=== PATIENT | female | born 1995 | race African-American/Black ===

== ENCOUNTER 2016-11-18 15:33 | Emergency (ER) | payer OTHER ==
[2016-11-18 15:36] VITALS: BP 139/80; BMI 31.1
== END 2016-11-18 18:46 | disposition left against medical advice (07) ==
LOC: ER 15:40
DX: R07.89 Other chest pain (principal)
CPT/HCPCS: 99281

== ENCOUNTER 2017-02-13 20:21 | Emergency (ER) | payer SELFPAY ==
[2017-02-13 20:29] VITALS: BP 125/55; BMI 31.1
--- NOTE | 2017-02-13 20:43 | DR.GENAD ---
HPI - PCP Primary Care Physician: nfd - Complaint/Symptoms Chief Complaint Doctors Comments: complaint of left lower toothache x 4 days Chief Complaint:: toothache - Nurses notes reviewed Nurses Notes Review: Yes - Source History Provided: Patient - Mode of Arrival Mode of Arrival: Ambulatory - Timing Onset of Chief Complaint: 02/09/17 Came on: Gradually - Duration Duration: Constant How lon Duration: Days - Location Location: left lower molar - Severity Severity: Moderate - Modifying Factors Worsens:: chewing - Associated Signs and Symptoms Associated Signs and Symptoms: pain PMH - PMH Past Medical History: No Past Surgical History: Yes Surgical History: Cholecystectomy, Tonsillectomy - Family History History of Family Medical Conditions: Yes Family Medical History: Diabetes Mellitus - Social History Does patient currently use any type of tobacco product: No Have you used tobacco products in the last 12 months: No Type of Tobacco Use: None Does any household member use tobacco: Yes Do you use any recreational Drugs:: No Lives With: Family Lives Where: Home - infectious screening In the last 2 months have you had wt loss of >10#?: NO Have you had fever, night sweats or hemotysis?: No Have you traveled outside the country in the last 6 months?: No Isolation: Standard ROS - Review of Systems Constitutional: No Symptoms Reported Eyes: No Symptoms Reported ENTM: Mouth Pain (tooth pain) Respiratoy: No Symptoms Reported Cardiovascular: No Symptoms Reported Gastrointestinal/Abdominal: No Symptoms Reported Genitourinary: No Symptoms Reported Neurological: No Symptoms Reported Musculoskeletal: No Symptoms Reported Integumentary: No Symptoms Reported Hematologic/Lymphatic: No Symptoms Reported Psychiatric: No Symptoms Reported PE - Vital Signs Vitals: Temperature 98.5 F Pulse Rate 69 Respiratory Rate 18 Blood Pressure [Right Arm] 103/55 Blood Pressure 125/55 O2 Sat by Pulse Oximetry 99 - General Limitations: No Limitations General Appearance: Alert, In No Apparent Distress - Head Head Exam: Normal Inspection - Eyes Eye exam: EOMI. negative: Scleral Icterus, Conjunctival Injection - ENT ENT Exam: negative: Normal Oropharynx (poor dentition, left lower molar gum swollen) External Ear Exam: Normal External Inspection Mouth Exam: negative: Drooling, Trismus, Lip Swelling, Tongue Elevation, Tongue Swelling Throat Exam: Normal Inspection - Neck Neck Exam: Normal Inspection, Full ROM, Trachea Midline - Chest Chest Inspection: Normal Inspection - Respiratory Respiratory Exam: negative: Accessory Muscle Use, Respiratory Distress - Cardiovascular Cardiovascular Exam: Regular Rate - Extremities Extremities Exam: Normal Inspection, Full ROM - Back Back Exam: Normal Inspection - Neurologic Neurological Exam: Alert, Oriented X3, CN II-XII Intact - Psychiatric Psychiatric Exam: Normal Mood - Skin Skin Exam: Intact, Normal Color - Diagnosis Discharge Problem: Toothache - Discharge Plan Condition: Stable Prescriptions: Amoxicillin 500 mg PO TID #30 cap Tramadol HCl [ULTRAM 50 MG *] 50 mg PO Q8H PRN #15 tab PRN Reason: Pain - Follow ups/Referrals Follow ups/Referrals: NFD,None [Primary Care Provider] - 3 days - Instructions
[2017-02-13] MEDS ORDERED: ULTRAM PO ONE (20:48)
[2017-02-13] MEDS ORDERED: AMOXIL CAP 500 MG PO ONE ×2 (20:48→20:55)
[2017-02-13] MEDS ORDERED: ULTRAM ONE (20:55)
== END 2017-02-13 21:09 | disposition home or self-care (01) ==
LOC: ER 20:33
DX: K08.89 Other specified disorders of teeth and supporting structures (principal)
CPT/HCPCS: 99282

== ENCOUNTER 2017-05-08 19:06 | Emergency (ER) | payer SELFPAY ==
[2017-05-08 19:13] VITALS: BMI 31.1
--- NOTE | 2017-05-08 20:04 | DR.GENAD ---
HPI - PCP Primary Care Physician: GURDEEP - Complaint/Symptoms Chief Complaint Doctors Comments: HEADACHE, POLYURIA AND POLYDYPSIA TIME 6 DAYS. HEADACHE WORSE TODAY. ASSOCIATED WITH NAUSEA. PATIENT FEEL SHE IS DEHYDRATED. Chief Complaint:: HEADACHE DEHYDRATION NUMBNESS IN HANDS, POLYURIA, POLYDYPSIA, POLYPHAGIA - Nurses notes reviewed Nurses Notes Review: Yes - Source History Provided: Patient - Mode of Arrival Mode of Arrival: Ambulatory - Timing Onset of Chief Complaint: 05/02/17 Came on: Suddenly - Duration Duration: Constant Duration: Days - Severity Severity: Moderate PMH - PMH Past Medical History: No Past Surgical History: Yes Surgical History: Cholecystectomy, Tonsillectomy - Family History History of Family Medical Conditions: Yes Family Medical History: Diabetes Mellitus, Hypertension - Social History Does patient currently use any type of tobacco product: No Have you used tobacco products in the last 12 months: No Type of Tobacco Use: None Does any household member use tobacco: No Alcohol Use: None Do you use any recreational Drugs:: No Lives With: Family Lives Where: Home - infectious screening In the last 2 months have you had wt loss of >10#?: NO Have you had fever, night sweats or hemotysis?: No Have you traveled outside the country in the last 6 months?: No Isolation: Standard ROS - Review of Systems Constitutional: Weakness, Fatigue Eyes: No Symptoms Reported. negative: Eye Pain, Discharge ENTM: No Symptoms Reported. negative: Ear Pain, Nose Discharge, Nose Congestion , Throat Pain Respiratoy: No Symptoms Reported, Productive Cough, Non-Productive Cough, Stridor. negative: Short of Breath, Wheezing, Hemoptysis Cardiovascular: No Symptoms Reported Gastrointestinal/Abdominal: Abdominal Pain, Nausea, Vomiting Genitourinary: No Symptoms Reported. negative: Dysuria, Frequency, Hematuria Neurological: Headache, Numbness, Weakness, Dizziness Musculoskeletal: No Symptoms Reported Integumentary: No Symptoms Reported Hematologic/Lymphatic: No Symptoms Reported Endocrine: No Symptoms Reported All Other Systems: Reviewed and Negative PE - Vital Signs Vitals: Temperature 98.0 F Pulse Rate [Left Brachial] 63 Pulse Rate 61 Respiratory Rate 20 Blood Pressure [Right Arm] 133/74 Blood Pressure 124/66 O2 Sat by Pulse Oximetry 99 - General Limitations: No Limitations General Appearance: Alert - Head Head Exam: Normal Inspection - Eyes Eye exam: Normal Appearance - ENT ENT Exam: Normal External Ear Exam TM/Canal Exam: Bilateral Normal Nose Exam: Normal Nose Exam Mouth Exam: Normal Inspection Throat Exam: Normal Inspection - Neck Neck Exam: Normal Inspection - Chest Chest Inspection: Symmetric Chest Wall Rise - Respiratory Respiratory Exam: Normal Lung Sounds Bilat Respiratory Exam: Bilateral Clear to Auscultation - Cardiovascular Cardiovascular Exam: Regular Rate, Normal Rhythm, Normal Heart Sounds - Abdominal Exam Abdominal Exam: Normal Bowel Sounds, Soft. negative: Tenderness - Extremities Extremities Exam: Normal Inspection - Back Back Exam: Normal Inspection - Neurologic Neurological Exam: Alert, Oriented X3, CN II-XII Intact. negative: Motor Sensory Deficit - Psychiatric Psychiatric Exam: Normal Affect, Normal Mood - Skin Skin Exam: Normal Color MDM - Differential Diagnosis Differential Diagnosis: HEADACHE, VOMITING, POLYURIA/POLYDYPSIA Course - Treatment Treatment: SEE ORDERS. - Education/Counseling Education/Counseling: Patient, Education Educated On: Treatment, Diagnosis, Needs for Follow Up ROR - Labs Reviewed Laboratory Results Reviewed?: Yes Result Diagrams: 05/08/17 20:59 05/08/17 20:59 Laboratory: WBC 8.6 X10^3/uL (3.6-10.0) 05/08/17 20:59 RBC 4.48 X10^6/uL (3.5-5.4) 05/08/17 20:59 Hgb 12.7 g/dL (12.0-16.0) 05/08/17 20:59 Hct 36.9 % (36.0-47.0) 05/08/17 20:59 MCV 82.4 fL (80.0-100.0) 05/08/17 20:59 MCH 28.3 pg (27.0-34.0) 05/08/17 20:59 MCHC 34.3 g/dL (33.0-35.0) 05/08/17 20:59 RDW 12.9 % (11.6-16.5) 05/08/17 20:59 Plt Count 169 X10^3/uL (150.0-450.0) 05/08/17 20:59 Plt Count Comment Adequate (ADEQUATE) 05/08/17 20:59 MPV 12.5 fL (7.4-11.0) H 05/08/17 20:59 Neut % 52.6 % (42.0-75.0) 05/08/17 20:59 Lymph % 37.3 % (21.0-51.0) 05/08/17 20:59 [place] % 5.9 % (0.0-13.0) 05/08/17 20:59 Eos % 3.2 % (0.9-2.9) H 05/08/17 20:59 Baso % 1.0 % (0.2-1.0) 05/08/17 20:59 Neut # 4.5 x10^3/uL (2.2-4.8) 05/08/17 20:59 Lymph # 3.2 X10^3/uL (1.3-2.9) H 05/08/17 20:59 [place] # 0.5 x10^3/uL (0.3-0.8) 05/08/17 20:59 Eos # 0.3 x10^3/uL (0.0-0.2) H 05/08/17 20:59 Baso # 0.1 X10^3/uL (0.0-0.1) 05/08/17 20:59 Absolute Nucleated RBC 0.1 /100WBC 05/08/17 20:59 Plt Morphology Comment Normal (NORMAL) 05/08/17 20:59 RBC Morphology Abnormal (NORMAL) A 05/08/17 20:59 Hypochromasia Slight A 05/08/17 20:59 Anisocytosis Slight A 05/08/17 20:59 Sodium 141 mmol/L (136-145) 05/08/17 20:59 Corrected Sodium TNP 05/08/17 20:59 Potassium 3.6 mmol/L (3.5-5.1) 05/08/17 20:59 Chloride 103 mmol/L (98-107) 05/08/17 20:59 Carbon Dioxide 28.3 mmol/L (21-32) 05/08/17 20:59 BUN 7 mg/dL (7-18) 05/08/17 20:59 Creatinine 0.75 mg/dL (0.55-1.02) 05/08/17 20:59 Est GFR (MDRD) Af Amer > 60 (>60) 05/08/17 20:59 Est GFR (MDRD) Non-Af > 60 (>60) 05/08/17 20:59 Glucose 76 mg/dL (65-99) 05/08/17 20:59 POC Glucose (mg/dL) 95 mg/dL (65-99) 05/08/17 20:12 Calcium 9.5 mg/dL (8.5-10.1) 05/08/17 20:59 Corrected Calcium TNP 05/08/17 20:59 Total Bilirubin 0.60 mg/dL (0.2-1.0) 05/08/17 20:59 AST 26 Units/L (15-37) 05/08/17 20:59 ALT 30 Units/L (12-78) 05/08/17 20:59 Alkaline Phosphatase 134 Units/L (46-116) H 05/08/17 20:59 Total Protein 8.1 g/dL (6.4-8.2) 05/08/17 20:59 Albumin 4.1 g/dL (3.4-5.0) 05/08/17 20:59 Globulin 4.0 g/dL (2.5-4.5) 05/08/17 20:59 Albumin/Globulin Ratio 1.0 Ratio (1.1-2.1) L 05/08/17 20:59 - XRAY XRAY Interpreted by: Radiologist XRAY Findings: REPORT DISCUSS WITH PATIENT. - Diagnosis Discharge Problem: Headache Qualifiers: Headache type: unspecified Headache chronicity pattern: acute headache Intractability: intractable Qualified Code(s): R51 - Headache Nausea & vomiting Qualifiers: Vomiting type: bilious vomiting Qualified Code(s): R11.14 - Bilious vomiting - Discharge Plan Disposition: 01 HOME, SELF-CARE Condition: Stable Prescriptions: Ibuprofen [MOTRIN TAB 600 MG *] 600 mg PO TID PRN #20 tab PRN Reason: Pain/Inflammation Ranitidine HCl [ZANTAC TAB 150 MG *] 150 mg PO BID #20 tab - Follow ups/Referrals Follow ups/Referrals: MEENA MACKENZIE [Primary Care Provider] - 1 day - Instructions Instructions: Migraine Headache, [id number] Additional Instructions: RETURN TO ED IF WORSE.
--- NOTE | 2017-05-08 20:34 | CT ---
CT head without contrast Indication: Headache Technique: Helical CT images of the brain were obtained without IV contrast. Reformatted images in th e coronal and sagittal planes were also generated for review. Comparison: MRI brain 01/03/2016, CT head with and without contrast 12/29/2015 Findings: Previously seen left frontal lobe DVA is not well appreciated on this noncontrast CT examin ation. The remaining brain is unremarkable. No intracranial hemorrhage, visible acute infarct, focal or generalized edema, hydrocephalus, extra-axial collection or mass is identified. The visualized par anasal sinuses and mastoid air cells are clear. No acute osseous or soft tissue abnormality is seen. Impression: No acute intracranial abnormality. Previously identified left frontal lobe DVA is not well appreciated on today's noncontrast CT examina tion. Reported By:
[2017-05-08 21:19] LABS: ALANINE AMINOTRANSFERASE 30 Units/L (12-78); ALBUMIN 4.1 g/dL (3.4-5.0); ALKALINE PHOSPHATASE 134 Units/L (46-116); ASPARTATE AMINO TRANSFERASE 26 Units/L (15-37); BASOPHILS # (AUTO) 0.1 X10^3/uL (0.0-0.1); BLOOD UREA NITROGEN 7 mg/dL (7-18); CALCIUM 9.5 mg/dL (8.5-10.1); CARBON DIOXIDE 28.3 mmol/L (21-32); CHLORIDE 103 mmol/L (98-107); CREATININE 0.75 mg/dL (0.55-1.02); EOSINOPHILS # (AUTO) 0.3 x10^3/uL (0.0-0.2); EOSINOPHILS % (AUTO) 3.2 % (0.9-2.9); HEMATOCRIT 36.9 % (36.0-47.0); HEMOGLOBIN 12.7 g/dL (12.0-16.0); LYMPHOCYTES # (AUTO) 3.2 X10^3/uL (1.3-2.9); LYMPHOCYTES % (AUTO) 37.3 % (21.0-51.0); MEAN CORPUSCULAR HEMOGLOBIN 28.3 pg (27.0-34.0); MEAN CORPUSCULAR HGB CONC 34.3 g/dL (33.0-35.0); MEAN CORPUSCULAR VOLUME 82.4 fL (80.0-100.0); MEAN PLATELET VOLUME 12.5 fL (7.4-11.0); MONOCYTES # (AUTO) 0.5 x10^3/uL (0.3-0.8); MONOCYTES % (AUTO) 5.9 % (0.0-13.0); NEUTROPHILS # (AUTO) 4.5 x10^3/uL (2.2-4.8); NEUTROPHILS % (AUTO) 52.6 % (42.0-75.0); PLATELET COUNT 169 X10^3/uL (150.0-450.0); RED BLOOD COUNT 4.48 X10^6/uL (3.5-5.4); RED CELL DISTRIBUTION WIDTH 12.9 % (11.6-16.5); SODIUM 141 mmol/L (136-145); TOTAL PROTEIN 8.1 g/dL (6.4-8.2); WHITE BLOOD COUNT 8.6 X10^3/uL (3.6-10.0); eGFR BLACK RACES > 60 (>60); eGFR NON BLACK RACES > 60 (>60)
[2017-05-08] MEDS ORDERED: TORADOL TAB PO ONE ×2 (21:31→21:35)
[2017-05-08] MEDS ORDERED: ZANTAC PO ONE ×2 (21:33→21:35)
[2017-05-08 21:34] LABS: PLATELET MORPHOLOGY COMMENT NORMAL (NORMAL)
[2017-05-08 21:35] LABS: ANISOCYTOSIS SLIGHT; HYPOCHROMASIA SLIGHT
[2017-05-08 21:56] VITALS: BP 133/74
== END 2017-05-08 21:55 | disposition home or self-care (01) ==
LOC: ER 19:18
DX: R51 Headache (principal); R11.14 Bilious vomiting
CPT/HCPCS: 36415; 70450; 80053; 85025; 99282; 99283

== ENCOUNTER 2017-07-02 19:39 | Emergency (ER) | payer SELFPAY ==
[2017-07-02 19:50] VITALS: BMI 30.5
[2017-07-02] MEDS ORDERED: IMITREX INJ SC ONE ×2 (20:23→20:37)
--- NOTE | 2017-07-02 20:23 | DR.GENAD ---
HPI - PCP Primary Care Physician: Pavan - Complaint/Symptoms Chief Complaint:: headache, dizzyness Self Treatment fo Chief Complaint: pt states that she was on imatrex in the past for migraines, patient hasn't had any medications today for headache - Nurses notes reviewed Nurses Notes Review: Yes - Source History Provided: Patient - Mode of Arrival Mode of Arrival: Ambulatory - Timing Onset of Chief Complaint: 06/29/17 Came on: Suddenly - Duration Duration: Constant Duration: Days - Severity Severity: Moderate PMH - PMH Past Medical History: Yes Past Medical History: Migraines Past Surgical History: Yes Surgical History: Cholecystectomy, Tonsillectomy - Family History History of Family Medical Conditions: Yes Family Medical History: Diabetes Mellitus, Hypertension - Social History Does patient currently use any type of tobacco product: No Have you used tobacco products in the last 12 months: No Type of Tobacco Use: None Does any household member use tobacco: No Alcohol Use: None Do you use any recreational Drugs:: No Lives With: Family Lives Where: Home - infectious screening In the last 2 months have you had wt loss of >10#?: NO Have you had fever, night sweats or hemotysis?: No Have you traveled outside the country in the last 6 months?: No Isolation: Standard ROS - Review of Systems Constitutional: No Symptoms Reported Eyes: negative: Eye Pain, Discharge ENTM: No Symptoms Reported. negative: Ear Pain, Nose Discharge, Nose Congestion , Throat Pain Respiratoy: No Symptoms Reported. negative: Short of Breath, Wheezing, Hemoptysis Cardiovascular: No Symptoms Reported. negative: Chest Pain Gastrointestinal/Abdominal: Nausea Genitourinary: No Symptoms Reported. negative: Dysuria, Frequency, Hematuria Neurological: Headache, Weakness, Dizziness Musculoskeletal: No Symptoms Reported Integumentary: No Symptoms Reported Hematologic/Lymphatic: No Symptoms Reported Endocrine: No Symptoms Reported All Other Systems: Reviewed and Negative PE - Vital Signs Vitals: Temperature 98.1 F Pulse Rate 60 Respiratory Rate 17 Blood Pressure [Right Arm] 133/74 Blood Pressure 116/68 O2 Sat by Pulse Oximetry 96 - General Limitations: No Limitations General Appearance: Alert - Head Head Exam: Normal Inspection - Eyes Eye exam: Normal Appearance - ENT ENT Exam: Normal External Ear Exam External Ear Exam: Normal External Inspection TM/Canal Exam: Bilateral Normal Nose Exam: Normal Nose Exam Mouth Exam: Normal Inspection Throat Exam: Normal Inspection - Neck Neck Exam: Normal Inspection - Chest Chest Inspection: Symmetric Chest Wall Rise - Respiratory Respiratory Exam: Normal Lung Sounds Bilat Respiratory Exam: Bilateral Clear to Auscultation - Cardiovascular Cardiovascular Exam: Regular Rate, Normal Rhythm, Normal Heart Sounds - Abdominal Exam Abdominal Exam: Normal Bowel Sounds, Soft. negative: Tenderness - Extremities Extremities Exam: Normal Inspection - Back Back Exam: Normal Inspection - Neurologic Neurological Exam: Alert, Oriented X3 - Psychiatric Psychiatric Exam: Normal Affect, Normal Mood - Skin Skin Exam: Normal Color MDM - Differential Diagnosis Differential Diagnosis: migraine headache Course - Treatment Treatment: SEE ORDERS, IMETREX S/C, RIDLEY UNCHANGE. IV DECADRUM, TORADOL AND BENADRYL, PAIN IMPROVED. - Reevaluation 1st: Improved - Education/Counseling Education/Counseling: Patient, Education Educated On: Treatment, Diagnosis, Needs for Follow Up - Diagnosis Discharge Problem: Migraine Qualifiers: Migraine type: with aura Status migrainosus presence: without status migrainosus Intractability: intractable Qualified Code(s): G43.119 - Migraine with aura, intractable, without status migrainosus - Discharge Plan Condition: Stable Prescriptions: [id number] [Fioricet Tab] 1 tab PO Q8H PRN #30 tab PRN Reason: Migraine Headache Ondansetron [Zofran ODT 8 mg] 8 mg PO Q8H PRN #12 tab PRN Reason: Nausea/Vomiting - Follow ups/Referrals Follow ups/Referrals: NFD,None [Primary Care Provider] - 1 day TERRA NICOLAS [STAFF PHYSICIAN] - 1 day TYRONE LAY [STAFF PHYSICIAN] - 1 day - Instructions Instructions: Migraine Headache, [id number] Additional Instructions: RETURN TO ED IF WORSE.
[2017-07-02] MEDS ORDERED: TORADOL 30 MG VIAL IVP ONE (21:11)
[2017-07-02] MEDS ORDERED: DECADRON INJ IM ONE (21:11)
[2017-07-02] MEDS ORDERED: BENADRYL INJ 50 MG VIAL IVP ONE (21:11)
[2017-07-02] MEDS ORDERED: NS 1000 ML 1,000 ML IV ONE (21:20)
[2017-07-02] MEDS ORDERED: NS 1000 ML 1,000 ML ONE (21:21)
[2017-07-02] MEDS ORDERED: DECADRON INJ ONE (21:21)
[2017-07-02] MEDS ORDERED: TORADOL 30 MG VIAL ONE (21:21)
[2017-07-02] MEDS ORDERED: BENADRYL INJ 50 MG VIAL ONE (21:21)
[2017-07-02] MEDS ORDERED: FIORICET TAB PO ONE ×2 (22:51→22:57)
[2017-07-02 23:12] VITALS: BP 123/61
== END 2017-07-02 23:08 | disposition home or self-care (01) ==
LOC: ER 19:56
DX: G43.119 Migraine with aura, intractable, without status migrainosus (principal)
CPT/HCPCS: 96365; 96372; 96374; 96375; 99282; 99283; A4222; J1100; J1200; J1885; J3030

== ENCOUNTER 2017-07-24 22:55 | Emergency (ER) | payer SELFPAY ==
[2017-07-24 23:02] VITALS: BP 116/52; BMI 30.5
[2017-07-24 23:52] LABS: BILIRUBIN,URINE NEGATIVE (NEGATIVE); BLOOD/HEMOGLOBIN,URINE 1+ (NEGATIVE); GLUCOSE, URINE NEGATIVE (NEGATIVE); KETONES,URINE NEGATIVE (NEGATIVE); LEUKOCYTE ESTERASE ,URINE 1+ (NEGATIVE); NITRITES,URINE NEGATIVE (NEGATIVE); PROTEIN,URINE NEGATIVE (NEGATIVE); UROBILINOGEN,URINE 1+ (NORMAL)
--- NOTE | 2017-07-24 23:53 | ED.ABDFE ---
HPI - Time seen Time seen: 23:25 - PCP Primary Care Physician: MEENA MACKENZIE - HPI Comment HPI Comment: PATIENT DENIES NAUSEA. BM TODAY. - Complaint Chief Complaint Doctors Comments: RUQ ABDOMINAL PAIN TONIGHT THAT HAS RESOLVE. LATE PERIOD. NO DYSURIA OR FEVER. Chief Complaint:: ABD PAIN , POINTING TO RUQ. DENIES ANY N/V/D, DENIES FEVER. LAST NORMAL BM WAS TODAY. PAIN STARTED TONIGHT, PAIN DURING THE WEEK ONCE. - Nurses notes reviewed Nurses Notes Review: Yes - Source History Provided: Patient - Mode of arrival Mode of Arrival: Ambulatory - Timing Onset of Chief Complaint: 07/24/17 Came on: Suddenly - Duration Duration: Constant Duration: Days - Location Location: [facility] - Severity Severity: Moderate - Quality Quality: Sharp - Context Onset: Suddenly History of: None - Modifying Worsening Factors: Nothing Improving Factors: Nothing - Associated signs and symptoms Associated Signs and Symptoms: None PMH - PMH Past Medical History: Yes Past Medical History: Migraines Past Surgical History: Yes Surgical History: Cholecystectomy, Tonsillectomy - Family History History of Family Medical Conditions: Yes Family Medical History: Diabetes Mellitus, Hypertension - Social History Does patient currently use any type of tobacco product: No Have you used tobacco products in the last 12 months: No Type of Tobacco Use: None Does any household member use tobacco: No Alcohol Use: None Do you use any recreational Drugs:: No Lives Where: Home - infectious screening Have you traveled outside the country in the last 6 months?: No Isolation: Standard ROS - Review of Systems Constitutional: No Symptoms Reported Eyes: No Symptoms Reported ENTM: No Symptoms Reported Respiratoy: No Symptoms Reported Cardiovascular: No Symptoms Reported Gastrointestinal/Abdominal: Abdominal Pain, Nausea Genitourinary: negative: Dysuria, Frequency, Hematuria Neurological: No Symptoms Reported Musculoskeletal: No Symptoms Reported Integumentary: No Symptoms Reported Hematologic/Lymphatic: No Symptoms Reported Endocrine: No Symptoms Reported Psychiatric: No Symptoms Reported All Other Systems: Reviewed and Negative PE - Vital Signs Vitals: Temperature 98.5 F Pulse Rate 69 Respiratory Rate 16 Blood Pressure [Right Arm] 123/61 Blood Pressure 116/52 O2 Sat by Pulse Oximetry 96 - General Limitations: No Limitations General Appearance: Alert - Head Head Exam: Normal Inspection - Eyes Eye exam: Normal Appearance - ENT ENT Exam: Normal External Ear Exam - Neck Neck Exam: Trachea Midline - Chest Chest Inspection: Symmetric Chest Wall Rise - Respiratory Respiratory Exam: Normal Lung Sounds Bilat Respiratory Exam: Bilateral Clear to Auscultation - Cardiovascular Cardiovascular Exam: Regular Rate, Normal Rhythm, Normal Heart Sounds - Abdominal Exam Abdominal Exam: Normal Inspection, Normal Bowel Sounds - Rectal Rectal Exam: Deferred - Back Back Exam: Normal Inspection - Extremeties Extremities Exam: Normal Inspection - External Exam: Female: Normal External Exam : Speculum Exam (Female): Deferred : Bimanual Exam (female): Deferred - Neurologic Neurological Exam: Alert, Oriented X3 - Psychiatric Psychiatric Exam: Normal Affect, Normal Mood MDM - Differential Diagnosis Differential Diagnosis- Considerations may include:: Urinary tract infection, Urolithiasis Other differential diagnosis: . Course - Treatment Treatment: SEE ORDERS/ - Education/Counseling Education/Counseling: Patient, Education Educated On: Diagnosis, Needs for Follow Up ROR - Labs Reviewed Laboratory Results Reviewed?: Yes Laboratory: HCG, Qual Positive >10 mIU/mL 07/24/17 23:37 Specimen Type Clean catch urine 07/24/17 23:29 Urine Color Yellow (YELLOW) 07/24/17 23:29 Urine Appearance Clear (CLEAR) 07/24/17 23:29 Urine pH 7.0 (5.0 - 8.0) 07/24/17 23:29 Ur Specific [place] 1.005 (1.000-1.030) 07/24/17 23:29 Urine Protein Negative (NEGATIVE) 07/24/17 23:29 Urine Glucose (UA) Negative (NEGATIVE) 07/24/17 23:29 Urine Ketones Negative (NEGATIVE) 07/24/17 23:29 Urine Occult Blood 1+ (NEGATIVE) 07/24/17 23:29 Urine Nitrite Negative (NEGATIVE) 07/24/17 23:29 Urine Bilirubin Negative (NEGATIVE) 07/24/17 23:29 Urine Urobilinogen 1+ (NORMAL) 07/24/17 23:29 Ur Leukocyte Esterase 1+ (NEGATIVE) 07/24/17 23:29 Urine RBC Rare /HPF (NEGATIVE) 07/24/17 23:29 Urine WBC 0-2 /HPF (NEGATIVE) 07/24/17 23:29 Ur Squamous Epith Cells Few /HPF (NEGATIVE) 07/24/17 23:29 Urine Bacteria Negative /HPF (NEGATIVE) 07/24/17 23:29 Ur Culture Indicated? No/not indicated 07/24/17 23:29 - Diagnosis Discharge Problem: Qualifiers: Weeks of gestation: less than 8 weeks Qualified Code(s): Z3A.01 - Less than 8 weeks gestation of - Discharge Plan Condition: Stable - Follow ups/Referrals Follow ups/Referrals: MEENA MACKENZIE [Primary Care Provider] - 3 days - Instructions Instructions: Additional Instructions: RETURN TO ED IF WORSE.
[2017-07-24 23:58] LABS: SERUM PREGNANCY TEST, QUAL POSITIVE >10 mIU/mL
[2017-07-24 23:59] LABS: APPEARANCE,URINE CLEAR (CLEAR); BACTERIA,URINE NEGATIVE /HPF (NEGATIVE); COLOR,URINE YELLOW (YELLOW); RBC,URINE RARE /HPF (NEGATIVE); SQUAMOUS EPITHELIAL CELL,UR FEW /HPF (NEGATIVE)
== END 2017-07-25 00:51 | disposition home or self-care (01) ==
LOC: ER 22:55
DX: R10.11 Right upper quadrant pain (principal); Z3A.01 Less than 8 weeks gestation of pregnancy
CPT/HCPCS: 36415; 81001; 84703; 99282

== ENCOUNTER 2017-08-25 10:47 | Emergency (ER) | payer MEDICAID, OTHER ==
[2017-08-25 10:58] VITALS: BP 113/54; BMI 29.9
--- NOTE | 2017-08-25 11:30 | DR.NAUSEAF ---
HPI - Time Seen Time seen: 12:00 - Primary Care Physician Primary Care Physician: CARLITOS ROBLEDO - HPI Comment HPI Comment: WEAK, FATIGUE. , ABDOMINAL PAIN BUT NO VAGINAL BLEEDING OR DYSURIA. NO FEVER. - Complaints Chief Complaint Doctors Comments: ABDOMINAL PAIN, N/V TIMES TWO DAYS. Chief Complaint:: PT C/O WEAKNESS CHILLIS AND VOMITTING AND HURTING ALL OVER AND NOT BEING ABLE TO GET OUT OF BED UNTIL TODAY,, Self Treatment fo Chief Complaint: PT STATES SHE IS AND SHE HAS NOT WENT TO OBGYN SHE DOES NOT KNOW HOW FAR,, LMP 06/27/17 - Reviewed Nurses Notes Reviewed: Yes - Source History Provided: Patient - Mode of Arrival Mode of Arrival: Ambulatory - Timing Onset of Chief Complaint: 08/24/17 - Context Onset: Spontaneous Recent: None : Yes History of: None - Quality Quality: Bilious - Associated Signs and Symptoms Abdominal Pain Quality: Cramping Symptoms: Abdominal Pain PMH - PMH Past Medical History: No Past Medical History: Migraines Past Surgical History: Yes Surgical History: Cholecystectomy, Tonsillectomy Past Surgical History Comment: CYST REMOVED . - Family History History of Family Medical Conditions: No Family Medical History: Diabetes Mellitus, Hypertension - Social History Does patient currently use any type of tobacco product: No Have you used tobacco products in the last 12 months: No Type of Tobacco Use: None Does any household member use tobacco: No Alcohol Use: None Do you use any recreational Drugs:: No Lives With: Family Lives Where: Home - infectious screening In the last 2 months have you had wt loss of >10#?: NO Have you had fever, night sweats or hemotysis?: No Have you traveled outside the country in the last 6 months?: No Isolation: Standard ROS - Review of Systems Constitutional: No Symptoms Reported, Weakness, Fatigue. negative: Chills, Fever Eyes: No Symptoms Reported. negative: Eye Pain, Discharge ENTM: No Symptoms Reported. negative: Ear Pain, Nose Discharge, Nose Congestion , Throat Pain Respiratoy: No Symptoms Reported Cardiovascular: No Symptoms Reported Gastrointestinal/Abdominal: Abdominal Pain, Nausea, Vomiting. negative: Diarrhea Genitourinary: No Symptoms Reported Neurological: No Symptoms Reported Musculoskeletal: No Symptoms Reported Integumentary: No Symptoms Reported Hematologic/Lymphatic: No Symptoms Reported Endocrine: No Symptoms Reported All Other Systems: Reviewed and Negative PE - Vital Signs Vitals: Temperature 97.0 F Pulse Rate 79 Respiratory Rate 20 Blood Pressure [Right Arm] 123/61 Blood Pressure 113/54 O2 Sat by Pulse Oximetry 99 - General Limitations: No Limitations General Appearance: Alert - Head Head Exam: Normal Inspection - Eyes Eye exam: Normal Appearance - ENT ENT Exam: Normal External Ear Exam - Neck Neck Exam: Trachea Midline - Chest Chest Inspection: Symmetric Chest Wall Rise - Respiratory Respiratory Exam: Normal Lung Sounds Bilat Respiratory Exam: Bilateral Clear to Auscultation - Cardiovascular Cardiovascular Exam: Regular Rate, Normal Rhythm, Normal Heart Sounds - Abdominal Exam Abdominal Exam: Normal Bowel Sounds, Soft. negative: Tenderness - Rectal Rectal Exam: Deferred - External Exam: Female: Deferred : Speculum Exam (Female): Deferred : Bimanual Exam (female): Deferred - Extremities Extremities Exam: Normal Inspection - Back Back Exam: Normal Inspection - Neurologic Neurological Exam: Alert, Oriented X3 - Psychiatric Psychiatric Exam: Normal Affect, Normal Mood - Skin Skin Exam: Normal Color MDM - Differential Diagnosis Differential Diagnosis: Considerations may Include:: Gastritis, , Urinary Tract Infection Differential Diagnosis Comment: HYPEREMESIS GRAVIDARUM. Course - Treatment Treatment: SEE ORDERS. - Education/Counseling Education/Counseling: Patient Educated On: Treatment, Diagnosis, Needs for Follow Up ROR - Labs Reviewed Laboratory Results Reviewed?: Yes Result Diagrams: 08/25/17 12:09 08/25/17 12:09 Laboratory: WBC 6.6 X10^3/uL (3.6-10.0) 08/25/17 12:09 RBC 4.47 X10^6/uL (3.5-5.4) 08/25/17 12:09 Hgb 12.1 g/dL (12.0-16.0) 08/25/17 12:09 Hct 35.3 % (36.0-47.0) L 08/25/17 12:09 MCV 78.9 fL (80.0-100.0) L 08/25/17 12:09 MCH 27.1 pg (27.0-34.0) 08/25/17 12:09 MCHC 34.4 g/dL (33.0-35.0) 08/25/17 12:09 RDW 14.2 % (11.6-16.5) 08/25/17 12:09 Plt Count 145 X10^3/uL (150.0-450.0) L 08/25/17 12:09 Plt Count Comment Adequate (ADEQUATE) 08/25/17 12:09 MPV 11.7 fL (7.4-11.0) H 08/25/17 12:09 Neut % 79.1 % (42.0-75.0) H 08/25/17 12:09 Lymph % 13.1 % (21.0-51.0) L 08/25/17 12:09 [place] % 5.7 % (0.0-13.0) 08/25/17 12:09 Eos % 1.8 % (0.9-2.9) 08/25/17 12:09 Baso % 0.3 % (0.2-1.0) 08/25/17 12:09 Neut # 5.2 x10^3/uL (2.2-4.8) H 08/25/17 12:09 Lymph # 0.9 X10^3/uL (1.3-2.9) L 08/25/17 12:09 [place] # 0.4 x10^3/uL (0.3-0.8) 08/25/17 12:09 Eos # 0.1 x10^3/uL (0.0-0.2) 08/25/17 12:09 Baso # 0.0 X10^3/uL (0.0-0.1) 08/25/17 12:09 Absolute Nucleated RBC 0.0 /100WBC 08/25/17 12:09 Giant Platelets Few 08/25/17 12:09 Plt Morphology Comment Normal (NORMAL) 08/25/17 12:09 RBC Morphology Normal (NORMAL) 08/25/17 12:09 Sodium 134 mmol/L (136-145) L 08/25/17 12:09 Corrected Sodium TNP 08/25/17 12:09 Potassium 4.0 mmol/L (3.5-5.1) 08/25/17 12:09 Chloride 100 mmol/L (98-107) 08/25/17 12:09 Carbon Dioxide 24.5 mmol/L (21-32) 08/25/17 12:09 BUN 3 mg/dL (7-18) L 08/25/17 12:09 Creatinine 0.52 mg/dL (0.55-1.02) L 08/25/17 12:09 Est GFR (MDRD) Af Amer > 60 (>60) 08/25/17 12:09 Est GFR (MDRD) Non-Af > 60 (>60) 08/25/17 12:09 Glucose 86 mg/dL (65-99) 08/25/17 12:09 Calcium 9.1 mg/dL (8.5-10.1) 08/25/17 12:09 Corrected Calcium TNP 08/25/17 12:09 Total Bilirubin 1.00 mg/dL (0.2-1.0) 08/25/17 12:09 AST 25 Units/L (15-37) 08/25/17 12:09 ALT 21 Units/L (12-78) 08/25/17 12:09 Alkaline Phosphatase 136 Units/L (46-116) H 08/25/17 12:09 Total Protein 7.3 g/dL (6.4-8.2) 08/25/17 12:09 Albumin 3.5 g/dL (3.4-5.0) 08/25/17 12:09 Globulin 3.8 g/dL (2.5-4.5) 08/25/17 12:09 Albumin/Globulin Ratio 0.9 Ratio (1.1-2.1) L 08/25/17 12:09 HCG, Quant 77786 mIU/mL (0-6) H 08/25/17 12:09 Specimen Type Clean catch urine 08/25/17 14:47 Urine Color Yellow (YELLOW) 08/25/17 14:47 Urine Appearance Slightly hazy (CLEAR) 08/25/17 14:47 Urine pH 7.0 (5.0 - 8.0) 08/25/17 14:47 Ur Specific [place] 1.005 (1.000-1.030) 08/25/17 14:47 Urine Protein 1+ (NEGATIVE) 08/25/17 14:47 Urine Glucose (UA) Negative (NEGATIVE) 08/25/17 14:47 Urine Ketones 2+ (NEGATIVE) 08/25/17 14:47 Urine Occult Blood 3+ (NEGATIVE) 08/25/17 14:47 Urine Nitrite Negative (NEGATIVE) 08/25/17 14:47 Urine Bilirubin Negative (NEGATIVE) 08/25/17 14:47 Urine Urobilinogen Normal (NORMAL) 08/25/17 14:47 Ur Leukocyte Esterase 1+ (NEGATIVE) 08/25/17 14:47 Urine RBC 04 - 08 /HPF (NEGATIVE) 08/25/17 14:47 Urine WBC 02 - 05 /HPF (NEGATIVE) 08/25/17 14:47 Ur Squamous Epith Cells Numerous /HPF (NEGATIVE) 08/25/17 14:47 Amorphous Sediment 1+ /HPF (NEGATIVE) 08/25/17 14:47 Urine Bacteria Trace /HPF (NEGATIVE) 08/25/17 14:47 Ur Culture Indicated? No/not indicated 08/25/17 14:47 Influenza Type A (PCR) Negative (NEGATIVE) 08/25/17 12:09 Influenza Type B (PCR) Negative (NEGATIVE) 08/25/17 12:09 - XRAY XRAY Findings: REPORT DISCUSS WITH PATIENT. - Diagnosis Discharge Problem: Abdominal pain affecting , Hyperemesis gravidarum - Discharge Plan Disposition: 01 HOME, SELF-CARE Condition: Stable Prescriptions: Promethazine HCl [PHENERGAN TAB 25 MG *] 25 mg PO Q8H PRN #12 tab PRN Reason: Nausea/Vomiting - Follow ups/Referrals Follow ups/Referrals: MEENA MACKENZIE [Primary Care Provider] - 3 days ALEE BAKER [STAFF PHYSICIAN] - 08/27/17 - Instructions Instructions: Abdominal Pain During , [id number], Eating Plan for Hyperemesis Gravidarum, Pelvic Rest Additional Instructions: RETURN TO ED IF WORSE.
[2017-08-25] MEDS ORDERED: PHENERGAN TAB 25 MG PO ONE (11:57)
[2017-08-25 12:15] LABS: BASOPHILS % (AUTO) 0.3 % (0.2-1.0); EOSINOPHILS # (AUTO) 0.1 x10^3/uL (0.0-0.2); EOSINOPHILS % (AUTO) 1.8 % (0.9-2.9); HEMATOCRIT 35.3 % (36.0-47.0); HEMOGLOBIN 12.1 g/dL (12.0-16.0); LYMPHOCYTES # (AUTO) 0.9 X10^3/uL (1.3-2.9); LYMPHOCYTES % (AUTO) 13.1 % (21.0-51.0); MEAN CORPUSCULAR HEMOGLOBIN 27.1 pg (27.0-34.0); MEAN CORPUSCULAR HGB CONC 34.4 g/dL (33.0-35.0); MEAN CORPUSCULAR VOLUME 78.9 fL (80.0-100.0); MEAN PLATELET VOLUME 11.7 fL (7.4-11.0); MONOCYTES # (AUTO) 0.4 x10^3/uL (0.3-0.8); MONOCYTES % (AUTO) 5.7 % (0.0-13.0); NEUTROPHILS # (AUTO) 5.2 x10^3/uL (2.2-4.8); NEUTROPHILS % (AUTO) 79.1 % (42.0-75.0); PLATELET COUNT 145 X10^3/uL (150.0-450.0); RED BLOOD COUNT 4.47 X10^6/uL (3.5-5.4); RED CELL DISTRIBUTION WIDTH 14.2 % (11.6-16.5); WHITE BLOOD COUNT 6.6 X10^3/uL (3.6-10.0)
[2017-08-25 12:28] LABS: GIANT PLATELET FEW; PLATELET MORPHOLOGY COMMENT NORMAL (NORMAL)
[2017-08-25 12:29] LABS: ALANINE AMINOTRANSFERASE 21 Units/L (12-78); ALBUMIN 3.5 g/dL (3.4-5.0); ALKALINE PHOSPHATASE 136 Units/L (46-116); ASPARTATE AMINO TRANSFERASE 25 Units/L (15-37); BLOOD UREA NITROGEN 3 mg/dL (7-18); CALCIUM 9.1 mg/dL (8.5-10.1); CARBON DIOXIDE 24.5 mmol/L (21-32); CHLORIDE 100 mmol/L (98-107); CREATININE 0.52 mg/dL (0.55-1.02); SODIUM 134 mmol/L (136-145); TOTAL PROTEIN 7.3 g/dL (6.4-8.2); eGFR BLACK RACES > 60 (>60); eGFR NON BLACK RACES > 60 (>60)
[2017-08-25 12:49] LABS: HCG,QUANTITATIVE 87992 mIU/mL (0-6)
--- NOTE | 2017-08-25 14:57 | US ---
HISTORY: Abdominal pain Study: Early OB sonogram Comparison: 08/09/2016 Technique: Multiple grayscale sonographic images were obtained transvaginally. Findings: The uterus measured 9.04 x 8.43 x 5.6 cm. Within the uterus there is a well-defined gestational sac containing a pole. [place]-rump length 20.9 mm corresponding to 8 weeks 3 days. There is a small lucency adjacent to the gestational sac measuring approximately 12 x 4.7 mm and likely a small subcho rionic hemorrhage. heart rate 180 beats per minute. The ovaries were not visualized. No adnexal masses were identified. No free fluid is noted in the cul-de-sac. Impression: Single viable intrauterine gestation 8 weeks 3 days +/-1 week gestational age Small 12 mm x 4.7 mm subchorionic hemorrhage Reported By:
[2017-08-25 15:03] LABS: BILIRUBIN,URINE NEGATIVE (NEGATIVE); BLOOD/HEMOGLOBIN,URINE 3+ (NEGATIVE); GLUCOSE, URINE NEGATIVE (NEGATIVE); KETONES,URINE 2+ (NEGATIVE); LEUKOCYTE ESTERASE ,URINE 1+ (NEGATIVE); NITRITES,URINE NEGATIVE (NEGATIVE); PROTEIN,URINE 1+ (NEGATIVE); UROBILINOGEN,URINE NORMAL (NORMAL)
[2017-08-25 15:08] LABS: APPEARANCE,URINE SLIGHTLY HAZY (CLEAR); COLOR,URINE YELLOW (YELLOW)
[2017-08-25 15:24] LABS: AMORPHOUS SEDIMENT,UR 1+ /HPF (NEGATIVE); BACTERIA,URINE TRACE /HPF (NEGATIVE); SQUAMOUS EPITHELIAL CELL,UR NUMEROUS /HPF (NEGATIVE)
== END 2017-08-25 15:39 | disposition home or self-care (01) ==
LOC: ER 11:02
DX: R10.84 Generalized abdominal pain (principal); O21.0 Mild hyperemesis gravidarum; O20.8 Other hemorrhage in early pregnancy; Z3A.08 8 weeks gestation of pregnancy
CPT/HCPCS: 36415; 76801; 80053; 81001; 84702; 85025; 87502; 99282; 99283; 99284; Q0169

== ENCOUNTER 2017-09-18 08:27 | Emergency (ER) | payer OTHER ==
[2017-09-18 08:28] VITALS: BP 113/54
[2017-09-18 08:39] VITALS: BMI 31.1
--- NOTE | 2017-09-18 08:54 | DR.GENAD ---
HPI - PCP Primary Care Physician: paige cifuentes - Complaint/Symptoms Chief Complaint Doctors Comments: Patient presents with an ingrown toenail of the great toe of the left foot. Chief Complaint:: pt stated for the past week her left great toe has been draining and very painfull. patient denies any trauma or injury. pt states she is also 3 months . - Source History Provided: Patient - Mode of Arrival Mode of Arrival: Ambulatory - Timing Onset of Chief Complaint: 09/11/17 PMH - PMH Past Medical History: No Past Medical History: Migraines Past Surgical History: Yes Surgical History: Cholecystectomy, Tonsillectomy - Family History History of Family Medical Conditions: Yes Family Medical History: Diabetes Mellitus, Hypertension - Social History Does patient currently use any type of tobacco product: No Have you used tobacco products in the last 12 months: No Type of Tobacco Use: None Does any household member use tobacco: No Alcohol Use: None Do you use any recreational Drugs:: No Lives With: Family Lives Where: Home - infectious screening In the last 2 months have you had wt loss of >10#?: NO Have you had fever, night sweats or hemotysis?: No Have you traveled outside the country in the last 6 months?: No Isolation: Standard ROS - Review of Systems Eyes: No Symptoms Reported ENTM: No Symptoms Reported Respiratoy: No Symptoms Reported Cardiovascular: No Symptoms Reported Gastrointestinal/Abdominal: No Symptoms Reported Genitourinary: No Symptoms Reported Neurological: No Symptoms Reported Musculoskeletal: No Symptoms Reported Integumentary: Lesions (left great toe ) Hematologic/Lymphatic: No Symptoms Reported Endocrine: No Symptoms Reported Psychiatric: No Symptoms Reported All Other Systems: Reviewed and Negative PE - Vital Signs Vitals: Temperature 98.7 F Pulse Rate 69 Respiratory Rate 16 Blood Pressure [Right Arm] 123/61 Blood Pressure 113/54 O2 Sat by Pulse Oximetry 99 - General Limitations: No Limitations General Appearance: Alert - Head Head Exam: Normal Inspection, Atraumatic - Eyes Eye exam: Normal Appearance, PERRL, EOMI - ENT ENT Exam: Normal Exam External Ear Exam: Normal External Inspection TM/Canal Exam: Bilateral Normal Nose Exam: Normal Nose Exam Mouth Exam: Normal Inspection Throat Exam: Normal Inspection - Neck Neck Exam: Normal Inspection - Chest Chest Inspection: Symmetric Chest Wall Rise - Respiratory Respiratory Exam: Normal Lung Sounds Bilat Respiratory Exam: Bilateral Clear to Auscultation - Cardiovascular Cardiovascular Exam: Regular Rate, Normal Rhythm - Abdominal Exam Abdominal Exam: Normal Inspection, Normal Bowel Sounds Abdominal Tenderness: negative: RUQ, RLQ, LUQ, LLQ, Epigastrium, Suprapubic, Diffuse, Mild, Moderate, Severe, Other - Extremities Extremities Exam: Other (left great toe with ingrown toe nail lateral aspect of toe) - Back Back Exam: Normal Inspection - Neurologic Neurological Exam: Alert, Oriented X3, CN II-XII Intact - Psychiatric Psychiatric Exam: Normal Affect - Skin Skin Exam: Warm, Dry, Intact - Diagnosis Discharge Problem: Ingrown toenail of left foot with infection - Discharge Plan Condition: Stable - Follow ups/Referrals Follow ups/Referrals: PAIGE CIFUENTES [Primary Care Provider] - 3 days - Instructions
== END 2017-09-18 09:06 | disposition home or self-care (01) ==
LOC: ER 08:39
DX: L60.0 Ingrowing nail (principal)
CPT/HCPCS: 99281; 99282

== ENCOUNTER 2017-09-20 18:35 | Emergency (ER) | payer MEDICAID, OTHER ==
[2017-09-20 18:46] VITALS: BP 119/84; BMI 31.1
--- NOTE | 2017-09-20 19:28 | DR.GENAD ---
HPI - PCP Primary Care Physician: MEENA MACKENZIE - HPI Comment HPI Comment: THERE WAS INGROWN NAIL IN THE TOE. SHE WAS TAKING AMOXICILLIN. AREA STILL RED AND DID DRAIN PUS TONIGHT. - Complaint/Symptoms Chief Complaint Doctors Comments: INJURY LEFT GREAT TOE TODAY. Chief Complaint:: INGROWN TOE NAIL LEFT FOOT GREAT TOE Self Treatment fo Chief Complaint: PT STATES SHE HAS HAD INGROWN TOENAIL FOR ABOUT A WEEK AND HAS BEEN TAKING AMOXICILLEN - Nurses notes reviewed Nurses Notes Review: Yes - Source History Provided: Patient - Mode of Arrival Mode of Arrival: Ambulatory - Timing Onset of Chief Complaint: 09/20/17 Came on: Suddenly - Duration Duration: Constant Duration: Days - Severity Severity: Moderate PMH - PMH Past Medical History: Yes Past Medical History: Migraines Past Surgical History: Yes Surgical History: Cholecystectomy, Tonsillectomy - Family History History of Family Medical Conditions: Yes Family Medical History: Diabetes Mellitus, Hypertension - Social History Does patient currently use any type of tobacco product: No Have you used tobacco products in the last 12 months: No Type of Tobacco Use: None Alcohol Use: None Do you use any recreational Drugs:: No Lives With: Alone Lives Where: Home - infectious screening In the last 2 months have you had wt loss of >10#?: NO Have you had fever, night sweats or hemotysis?: No Have you traveled outside the country in the last 6 months?: No Isolation: Standard ROS - Review of Systems Constitutional: No Symptoms Reported Eyes: No Symptoms Reported ENTM: No Symptoms Reported Respiratoy: No Symptoms Reported Cardiovascular: No Symptoms Reported Gastrointestinal/Abdominal: No Symptoms Reported Genitourinary: No Symptoms Reported Neurological: No Symptoms Reported Musculoskeletal: Left, Foot Integumentary: Other (REDNESS, SWELLING AND INJURY LEFT GREAT TOE.) Hematologic/Lymphatic: No Symptoms Reported Endocrine: No Symptoms Reported All Other Systems: Reviewed and Negative PE - Vital Signs Vitals: Temperature 99.3 F Pulse Rate 70 Respiratory Rate 20 Blood Pressure [Right Arm] 123/61 Blood Pressure 119/84 O2 Sat by Pulse Oximetry 98 - General Limitations: No Limitations General Appearance: Alert - Head Head Exam: Normal Inspection - Eyes Eye exam: Normal Appearance - ENT ENT Exam: Normal External Ear Exam External Ear Exam: Normal External Inspection Throat Exam: Normal Inspection - Neck Neck Exam: Trachea Midline - Chest Chest Inspection: Symmetric Chest Wall Rise - Respiratory Respiratory Exam: Bilateral Clear to Auscultation - Cardiovascular Cardiovascular Exam: Regular Rate, Normal Rhythm, Normal Heart Sounds - Abdominal Exam Abdominal Exam: Normal Inspection - Extremities Extremities Exam: Normal Inspection - Back Back Exam: Normal Inspection - Neurologic Neurological Exam: Alert - Psychiatric Psychiatric Exam: Normal Affect, Normal Mood - Skin Skin Exam: Erythema MDM - Differential Diagnosis Differential Diagnosis: INGROWN LEFT GREAT TOE, INJURY LEFT GREAT TOE. Course - Treatment Treatment: SEE ORDERS. - Education/Counseling Education/Counseling: Patient, Education Educated On: Treatment, Diagnosis, Needs for Follow Up Procedures - Procedure Comments Procedures: CLEAN LEFT GREAT TOE. INFILTERATE LATERAL CORNER OF NAIL ON GREAT TOE WITH 1% LIDOCAINE. TISSUE COMING OUT OF WOUND WAS EXCISED. DRESSING APPLIED TO WOUND. - Diagnosis Discharge Problem: Ingrowing toenail - Discharge Plan Condition: Stable Prescriptions: Cephalexin [KEFLEX CAP 500 MG *] 500 mg PO TID #21 cap - Follow ups/Referrals Follow ups/Referrals: MEENA MACKENZIE [Primary Care Provider] - 3 days - Instructions Instructions: Ingrown Toenail Additional Instructions: RETURN TO ED IF WORSE.
[2017-09-20] MEDS ORDERED: KEFLEX CAP 500 MG PO ONE ×2 (19:32→19:33)
== END 2017-09-20 19:40 | disposition home or self-care (01) ==
LOC: ER 18:51
DX: L60.0 Ingrowing nail (principal)
CPT/HCPCS: 99282